=== PATIENT | male | born 1965 | race Two or more races ===

== ENCOUNTER 2024-11-09 16:03 | Emergency (ER) | payer SELFPAY ==
[2024-11-09] MEDS: Acetaminophen 325 MG Tab PO ONE (16:56)
[2024-11-09] MEDS: Ondansetron 4 MG/2 ML SDV IVPUSH ONE (17:20)
[2024-11-09] MEDS: Morphine 2 MG/ML SYRINGE IVPUSH ONE (17:20)
[2024-11-09] MEDS: Etomidate 2 MG/ML 20 ML SDV IVPUSH ONE (17:41)
[2024-11-09] MEDS: Acetaminophen/HYDROcodone 325-5 MG Tab PO ONE (19:19)
== END 2024-11-09 19:37 | disposition home or self-care (01) ==
LOC: MW.ED 16:03
DX: S43.014A Anterior dislocation of right humerus, initial encounter (principal); Z79.899 Other long term (current) drug therapy; W18.39XA Other fall on same level, initial encounter; Y93.89 Activity, other specified
CPT/HCPCS: 23650; 73030; 96374; 96375; 99152; 99283; A9270; J2270; J2405; J3490; 23655; 99284